=== PATIENT | male | born 1990 | race Caucasian/White ===

== ENCOUNTER 2019-10-22 09:14 | Emergency (ER) | payer BC, OTHER ==
[~2019-10-22] VITALS: Ht 182 cm; Wt 72.5 kg
[2019-10-22 10:09] LABS: BASOPHILS % (AUTO) 1 % (0-10); EOSINOPHILS # (AUTO) 0.2 10^3/uL (0.0-0.3); EOSINOPHILS % (AUTO) 4 % (0-10); HEMATOCRIT 43 % (40-54); LYMPHOCYTES # (AUTO) 0.4 X 10^3 (1.0-4.0); LYMPHOCYTES % (AUTO) 7 % (12-44); MEAN CORPUSCULAR HEMOGLOBIN 32 PG (25-34); MEAN CORPUSCULAR HGB CONC 35 G/DL (32-36); MEAN CORPUSCULAR VOLUME 93 FL (80-99); MONOCYTES # (AUTO) 0.4 X 10^3 (0.0-1.0); MONOCYTES % (AUTO) 7 % (0-12); NEUTROPHILS # (AUTO) 4.9 X 10^3 (1.8-7.8); NEUTROPHILS % (AUTO) 81 % (42-75); PLATELET COUNT 201 10^3/uL (130-400); RED CELL DISTRIBUTION WIDTH 12.5 % (10.0-14.5)
[2019-10-22] MEDS ORDERED: KETOROLAC 30 MG/ML VIAL IVP ONE (10:15)
[2019-10-22 10:19] LABS: ALBUMIN 4.1 GM/DL (3.2-4.5); CHLORIDE 105 MMOL/L (98-107); POTASSIUM 4.4 MMOL/L (3.6-5.0); SODIUM 135 MMOL/L (135-145)
[2019-10-22 10:21] LABS: CALCIUM 8.9 MG/DL (8.5-10.1)
[2019-10-22 10:22] LABS: GLUCOSE 105 MG/DL (70-105); TOTAL PROTEIN 6.9 GM/DL (6.4-8.2)
[2019-10-22 10:23] LABS: CARBON DIOXIDE 21 MMOL/L (21-32)
[2019-10-22 10:24] LABS: BILIRUBIN,TOTAL 0.5 MG/DL (0.1-1.0)
[2019-10-22 10:25] LABS: ALKALINE PHOSPHATASE 76 U/L (40-136)
[2019-10-22 10:26] LABS: CREATININE SERUM 0.99 MG/DL (0.60-1.30); GFR ESTIMATED > 60
[2019-10-22 10:27] LABS: BUN/CREATININE RATIO 8
[2019-10-22 10:28] LABS: ALANINE AMINOTRANSFERASE 29 U/L (0-55)
--- NOTE | 2019-10-22 10:39 | ED Integumentary General ---
General Chief Complaint: Skin/Wound Problems Stated Complaint: SORE ON RIGHT SHOULDER Nursing Triage Note: PT PRESENTS TO ED WITH COMPLAINTS OF R SHOULDER PAIN /POSSIBLE SPIDER BITE TO R SHOULDER AND LOW GRADE FEVERS/MALAISE SINCE YESTERDAY. Source: patient Exam Limitations: no limitations History of Present Illness Date Seen by Provider: Oct 22, 2019 Time Seen by Provider: 10:20 Initial Comments Pt here by POV with bodyaches, chills, fever responding to nyquil. No rhinorrhea, sore throat, cough, dysuria. No PMH. Follows a PCP in [place]. Noticed a painfull lump on left shoulder blade yesterday. No N/V/D. Allergies and Home Medications Allergies Coded Allergies: No Known Drug Allergies (Unverified , 10/22/19) Home Medications No Active Prescriptions or Reported Meds Patient Home Medication List Home Medication List Reviewed: Yes Review of Systems Review of Systems Constitutional: chills; No dizziness; fever, malaise; No weakness EENTM: No ear discharge, No hearing loss, No ear pain, No blurred vision Respiratory: No cough, No phlegm, No short of breath Cardiovascular: No chest pain, No edema Gastrointestinal: No abdominal pain, No constipation, No diarrhea, No nausea Genitourinary: No decreased output, No discharge, No dysuria Musculoskeletal: No back pain, No joint pain Skin: No pruritus, No rash Psychiatric/Neurological: Denies Headache, Denies Numbness All Other Systems Reviewed Negative Unless Noted: Yes Past Kfmetqi-Rcscqy-Rpnzxj Hx Patient Social History Alcohol Use: Rarely Uses Recreational Drug Use: No Smoking Status: Current Everyday Smoker Recent Foreign Travel: No Contact w/Someone Who Travel: No Recent Infectious Disease Expo: No Physical Abuse: No Sexual Abuse: No Mistreated: No Fear: No Past Medical History Surgeries: Yes (WISDOM TEETH) Respiratory: No Cardiac: No Neurological: No Genitourinary: No Gastrointestinal: No Musculoskeletal: No Endocrine: No HEENT: No Cancer: No Psychosocial: No Blood Disorders: No Physical Exam Vital Signs Vital Signs - First Documented 10/22/19 09:37 Temp 37.6 Pulse 103 Resp 20 B/P (MAP) 121/79 (93) Pulse Ox 98 Capillary Refill : Less Than 3 Seconds General Appearance: WD/WN, no apparent distress HEENT: PERRL/EOMI, normal ENT inspection, TMs normal, pharynx normal Neck: non-tender, full range of motion, supple Cardiovascular: normal peripheral pulses, regular rate, rhythm Respiratory: lungs clear, normal breath sounds, no respiratory distress, no accessory muscle use Gastrointestinal: normal bowel sounds, non tender, soft Extremities: normal inspection, normal capillary refill Neurologic/Psychiatric: alert, normal mood/affect, oriented x 3 Skin: other (5 cm TTP soft mass over the right scapula with an opening but no drainage. ) Progress/Results/Core Measures Results/Orders Lab Results Laboratory Tests Test 10/22/19 10:00 Range/Units White Blood Count 6.0 4.3-11.0 10^3/uL Red Blood Count 4.69 4.35-5.85 10^6/uL Hemoglobin 15.0 13.3-17.7 G/DL Hematocrit 43 40-54 % Mean Corpuscular Volume 93 80-99 FL Mean Corpuscular Hemoglobin 32 25-34 PG Mean Corpuscular Hemoglobin Concent 35 32-36 G/DL Red Cell Distribution Width 12.5 10.0-14.5 % Platelet Count 201 130-400 10^3/uL Mean Platelet Volume 10.0 7.4-10.4 FL Neutrophils (%) (Auto) 81 H 42-75 % Lymphocytes (%) (Auto) 7 L 12-44 % Monocytes (%) (Auto) 7 0-12 % Eosinophils (%) (Auto) 4 0-10 % Basophils (%) (Auto) 1 0-10 % Neutrophils # (Auto) 4.9 1.8-7.8 X 10^3 Lymphocytes # (Auto) 0.4 L 1.0-4.0 X 10^3 Monocytes # (Auto) 0.4 0.0-1.0 X 10^3 Eosinophils # (Auto) 0.2 0.0-0.3 10^3/uL Basophils # (Auto) 0.0 0.0-0.1 10^3/uL Sodium Level 135 135-145 MMOL/L Potassium Level 4.4 3.6-5.0 MMOL/L Chloride Level 105 98-107 MMOL/L Carbon Dioxide Level 21 21-32 MMOL/L Anion Gap 9 5-14 MMOL/L Blood Urea Nitrogen 8 7-18 MG/DL Creatinine 0.99 0.60-1.30 MG/DL Estimat Glomerular Filtration Rate > 60 BUN/Creatinine Ratio 8 Glucose Level 105 70-105 MG/DL Calcium Level 8.9 8.5-10.1 MG/DL Corrected Calcium 8.8 8.5-10.1 MG/DL Total Bilirubin 0.5 0.1-1.0 MG/DL Aspartate Amino Transf (AST/SGOT) 25 5-34 U/L Alanine Aminotransferase (ALT/SGPT) 29 0-55 U/L Alkaline Phosphatase 76 40-136 U/L C-Reactive Protein High Sensitivity 5.59 H 0.00-0.50 MG/DL Total Protein 6.9 6.4-8.2 GM/DL Albumin 4.1 3.2-4.5 GM/DL My Orders Orders - GONZALO SINCLAIR Cbc With Automated Diff (10/22/19 09:38) Comprehensive Metabolic Panel (10/22/19 09:38) Hs C Reactive Protein (10/22/19 09:38) Ketorolac Injection (Toradol Injection) (10/22/19 10:15) Manual Differential (10/22/19 10:00) Medications Given in ED Current Medications Medications Dose Ordered Sig/Jessa Route Start Time Stop Time Status Last Admin Dose Admin Ketorolac Tromethamine 15 mg ONCE ONCE IVP 10/22/19 10:15 10/22/19 10:16 DC 10/22/19 10:23 15 MG Vital Signs/I&O 10/22/19 09:37 Temp 37.6 Pulse 103 Resp 20 B/P (MAP) 121/79 (93) Pulse Ox 98 Blood Pressure Mean: 93 Progress Progress Note : Time: 10:43 Progress Note Could not get it to express anything. We will put him on Abx and F/U with PCP. Return precautions as needed. Didn't attempt to I&D because it is too early. Departure Impression Primary Impression: Abscess Disposition: 01 HOME, SELF-CARE Condition: Stable Departure-Patient Inst. Decision time for Depature: 10:44 Referrals: NO,LOCAL PHYSICIAN (PCP/Family) Primary Care Physician Patient Instructions: Armand (LUCERO) Add. Discharge Instructions: Bactrim twice a day with food for 7 days. If it begins to drain then we will be happy to open it and drain it or you may have your primary doctor's office do it. Expect symptoms to turn around by Wednesday, 3 days after starting antibiotics. Return to the ER if new, worrisome symptoms such as Chest pain or shortness of breath. Warm, moist compresses to the shoulder every hour while awake will help it heal sooner. All discharge instructions reviewed with patient and/or family. Voiced understanding. Scripts Sulfamethoxazole/Trimethoprim (Bactrim Ds Tablet) 1 Each Tablet 1 EACH PO BID for 7 Days, #14 TAB 0 Refills Prov: GONZALO SINCLAIR 10/22/19 GONZALO SINCLAIR Oct 22, 2019 10:39
[2019-10-22 10:47] LABS: BAND NEUTROPHILS 0 %; LYMPHOCYTES % (MANUAL) 3 %; NEUTROPHILS % (MANUAL) 86 %
[2019-10-22] MEDS ORDERED: SULF1TAB35 PO (10:47)
[2019-10-22 10:48] LABS: BASOPHILS % (MANUAL) 1 %; EOSINOPHILS % (MANUAL) 2 %; MONOCYTES % (MANUAL) 8 %; RBC MORPH NORMAL
[2019-10-22 11:13] VITALS: BP 119/73
== END 2019-10-22 10:53 | disposition home or self-care (01) ==
LOC: ER 09:16
DX: L02.413 Cutaneous abscess of right upper limb (principal); F17.200 Nicotine dependence, unspecified, uncomplicated
CPT/HCPCS: 36415; 80053; 85007; 85027; 86141